=== PATIENT | male | born 1975 ===

== ENCOUNTER 2018-02-27 12:38 | Emergency (ER) | payer OTHER ==
[2018-02-27 12:49] VITALS: BMI 28.2
[2018-02-27 12:52] VITALS: O2SAT 98
--- NOTE | 2018-02-27 14:29 | C.PDOC ---
History Of Present Illness 42 year old male presents to the ED complaining of right upper back pain for the past week. Reports pain has been increasing and is worse with movement. Denies any fever, SOB, chest pain, weakness, or numbness. Denies any trauma or heavy lifting. Notes he took one dose of Advil but pain persists. 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 Time Seen by Provider: 02/27/18 14:02 Chief Complaint (Nursing): Back Pain History Per: Patient History/Exam Limitations: no limitations Onset/Duration Of Symptoms: Days (one week) Current Symptoms Are (Timing): Still Present Quality Of Discomfort: "Pain" Previous Symptoms: None Associated Symptoms: None Exacerbating Factor(s): Turning, Movement Past Medical History Reviewed: Historical Data, Nursing Documentation, Vital Signs Vital Signs: Last Vital Signs Temp 98.7 F 02/27/18 12:50 Pulse 71 02/27/18 12:50 Resp 18 02/27/18 12:50 BP 132/96 H 02/27/18 12:50 Pulse Ox 98 02/27/18 12:50 - Medical History PMH: No Chronic Diseases Surgical History: No Surg Hx Family History: States: No Known Family Hx - Social History Hx Alcohol Use: Yes Hx Substance Use: No - Immunization History Hx Tetanus Toxoid Vaccination: No Hx Influenza Vaccination: No Hx Pneumococcal Vaccination: No Review Of Systems Constitutional: Negative for: Fever Cardiovascular: Negative for: Chest Pain Respiratory: Negative for: Cough, Shortness of Breath Musculoskeletal: Positive for: Back Pain. Negative for: Neck Pain, Shoulder Pain Skin: Negative for: Bruising Neurological: Negative for: Weakness, Numbness Physical Exam - Physical Exam Appears: Non-toxic, No Acute Distress Skin: Warm, Dry Head: Atraumatic, Normacephalic Eye(s): bilateral: Normal Inspection Neck: No Midline Cervical Tenderness, No Paracervical Tenderness Cardiovascular: Rhythm Regular Respiratory: Normal Breath Sounds, No Rales, No Rhonchi, No Wheezing Gastrointestinal/Abdominal: Bowel Sounds, Soft, No Tenderness Back: Muscle Spasm (palpated muscle spasm medial to scapula), Other ((+) tenderness medial to the scapula (-) midline tenderness ) Extremity: Normal ROM, No Pedal Edema, No Calf Tenderness Extremity: Bilateral: Atraumatic Pulses: Left Radial: Normal, Right Radial: Normal Neurological/Psych: Oriented x3, Normal Speech, Normal Motor, Normal Sensation, Normal Reflexes Gait: Steady ED Course And Treatment O2 Sat by Pulse Oximetry: 98 (RA) Pulse Ox Interpretation: Normal Medical Decision Making Medical Decision Making: pt with rrhoboid tenderness, worse with movement. feels much better after todaol and lidoderm patch. dc home with nsaids Disposition Counseled Patient/Family Regarding: Diagnosis, Need For Followup, Rx Given - Disposition Referrals: [facility] [Outside] Disposition: HOME/ ROUTINE Disposition Time: 15:15 Condition: IMPROVED Additional Instructions: [place] naproxeno terry se lo recetaron (con comida). Quitarse el parche despus de 12 horas. Compresas tibias en el debora dolorosa varias veces al da despus de eso. Evite levantar objetos pesados. Seguimiento en clnica mdica. Regrese a la bonnie de emergencias por cualquier empeoramiento de los sntomas. Take naproxen as prescribed (with food). Take patch off after 12 hours. Warm compresses to painful area several times a day after that. Avoid heavy lifting. Follow up in medical clinic. Return to ER for any worsening symptoms. Prescriptions: Naproxen 500 mg PO BID #20 tab Instructions: Upper Back Pain (DC) Forms: Gen Discharge Inst Chadian, [facility] (Chadian) Print Language: KHMER - Clinical Impression Clinical Impression: Thoracic back sprain - PA / SACK LIFTER / Resident Statement MD/DO has reviewed & agrees with the documentation as recorded. - Scribe Statement The provider has reviewed the documentation as recorded by the Arabellaibepi Beltrán All medical record entries made by the Arabellaibepi were at my direction and personally dictated by me. I have reviewed the chart and agree that the record accurately reflects my personal performance of the history, physical exam, medical decision making, and the department course for this patient. I have also personally directed, reviewed, and agree with the discharge instructions and disposition.
[2018-02-27] MEDS ORDERED: Lidocaine 5% Patch TD STA (14:31)
[2018-02-27] MEDS ORDERED: Lidocaine 5% Patch TD ONE (14:36)
[2018-02-27 14:56] VITALS: BP 133/89; PULSE 66; RESP 20; TEMP 98.3
== END 2018-02-27 15:23 | disposition home or self-care (01) ==
LOC: C.ER 12:38
DX: S23.3XXA Sprain of ligaments of thoracic spine, initial encounter (principal); X58.XXXA Exposure to other specified factors, initial encounter; Y92.9 Unspecified place or not applicable
CPT/HCPCS: 96372; 99283; J1885